=== PATIENT | female | born 1955 | race Caucasian/White ===

== ENCOUNTER 2022-01-08 12:06 | Emergency (ER) | payer BC, SELFPAY ==
[2022-01-08 12:16] VITALS: BP 100/82; PULSE 106; RESP 18; TEMP 38.9; O2SAT 94
--- NOTE | 2022-01-08 12:38 | ED.GENADUL_ITS ---
Discharge Plan Disposition Patient Disposition: Home Condition: Good Discharge Details Clinical Impression: Pneumonia, Asthma exacerbation Primary Care Provider: Ricky Polo ED Provider: Victoriano Rosado Home Meds and New Rx's Prescriptions: New prednisone 50 mg tablet 50 mg PO DAILY Qty: 5 0RF doxycycline hyclate 100 mg tablet 100 mg PO BID Qty: 20 0RF Discharge Instructions Instructions: Asthma (ED), Pneumonia (ED) Additional Instructions: At this time you have evidence of mild pneumonia on the right-hand side. This likely started from a viral illness and has now progressed into pneumonia. Please take the antibiotic doxycycline as prescribed as well as a steroid to help with your asthma exacerbation. Please continue to take your inhaler, 2 puffs every 4-6 hours for the next week to help with your asthma exacerbation. If you notice any worsening of your symptoms, or any new symptoms such as vomiting, diarrhea, fever, chills, shortness of breath, chest pain, numbness, weakness, or fainting , please return immediately to the emergency department for reevaluation. Please follow up with your primary care provider as soon as possible for reassessment and reevaluation. As always, it was a pleasure participating in your medical care today. Referrals: Ricky Polo [Primary Care Provider] - Discharge Data Discharge Date/Time-TO BE ENTERED AT DEPARTURE: 01/08/22 13:04 Medical Decision Making 66-year-old female with no significant past medical history except for asthma, presents today for evaluation of cough, fever, and chills. Patient states that symptoms have been present for the last 5 days. It started with a runny nose and congestion and has transition to cough. She has been exposed to family members that have had RSV recently. She has not gotten her flu shot this year. She has not had a recent COVID booster. She has been using her inhaler at home. She has taken Tylenol and Motrin as needed for fever. No other complaints at this time. No other modifying factors. Exam demonstrates wheezes throughout her lung louise, crackles on the right. Bedside ultrasound demonstrates B-lines and small amount of consolidation noted on the right as well. Symptoms are concerning for mild pneumonia. Patient is out of the window for treatment for influenza. We will test for COVID and RSV. I do feel that the patient would benefit from antibiotic secondary to the bacterial pneumonia. Will prescribe doxycycline. Blood pressure and vital signs are otherwise stable. No hypoxemia necessitating inpatient admission or supplemental oxygen. Patient will continue to use her inhaler. We will give prednisone for home use. We will give a bottle of doxycycline here and a prescription to her pharmacy and the first dose of prednisone here and a prescription to her pharmacy. Discussed red flags which to return. I have extensively reviewed the treatment plan and discharge instructions with the patient and their family. I have addressed all patient concerns at this time. The patient and family was made aware of what symptoms to monitor for that would warrant a return to the emergency department. Discussed the plan with the patient and family, they demonstrate verbal understanding and agreement with our assessment and plan at this time. The documentation in this chart was dictated using [employer] dictation software. Please excuse any dictation errors. Patient's flu and COVID are negative, RSV was positive. I did call the patient and informed her of this. Sign Out No HPI General Date/Time Provider Initiated Documentation: 01/08/22 12:19 . HPI Narrative: 66-year-old female with no significant past medical history except for asthma, presents today for evaluation of cough, fever, and chills. Patient states that symptoms have been present for the last 5 days. It started with a runny nose and congestion and has transition to cough. She has been exposed to family members that have had RSV recently. She has not gotten her flu shot this year. She has not had a recent COVID booster. She has been using her inhaler at home. She has taken Tylenol and Motrin as needed for fever. No other complaints at this time. No other modifying factors. Related Data Home Medications Medication Instructions Recorded Confirmed doxycycline hyclate 100 mg tablet 100 mg PO BID #20 tabs 01/08/22 prednisone 50 mg tablet 50 mg PO DAILY #5 tabs 01/08/22 Previous Rx's Medication Instructions Recorded doxycycline hyclate 100 mg tablet 100 mg PO BID #20 tabs 01/08/22 prednisone 50 mg tablet 50 mg PO DAILY #5 tabs 01/08/22 General Stated Complaint: RespSymp CARIDAD: 4 Review of Systems All systems reviewed & are unremarkable except as noted in HPI and below PFSH All Active Problems Pneumonia (Acute) Asthma exacerbation (Acute) Social History Smoking/Tobacco Use Status: Never Smoking risk assessment performed?: Yes Alcohol Intake: never Drug use: Never Substance use type: does not use Do you feel safe at home: Yes Do you feel safe in your relationship?: Yes Exam Narrative Exam Narrative: 1.Const: Well-nourished, Well-developed, appearing stated age 2.Eyes: PERRL, no conjunctival injection, and symmetrical lids. 3.ENT: Atraumatic external nose and ears. Moist MM. Neck: Symmetric, trachea midline, No thyromegaly. 4.CVS: +S1/S2, No murmurs or gallops. Peripheral pulses 2+ and equal in all extremities. Brisk capillary refill in all extremities. 5.RESP: Crackles are noted in the right lung field, wheezes noted throughout. No rhonchi. 6.GI: Soft, Nontender/Nondistended, No hepatosplenomegaly. No guarding or rebound. 7.MSK: Normocephalic/Atraumatic, Extremities w/o deformity or ttp No cyanosis or clubbing, Normal movement of all extremities 8.Skin: Warm, Dry. No rashes or lesions. 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 Sensation grossly intact, no focal neurologic deficits. 10.Psych: (AAO) x3. Appropriate mood and affect Course Vital Signs Vital signs: Vital Signs Temperature 38.9 C H 01/08/22 12:16 Pulse 106 H 01/08/22 12:16 Respiratory Rate 18 01/08/22 12:16 Blood Pressure 100/82 01/08/22 12:16 Pulse Oximetry 94 01/08/22 12:16 Temperature 38.9 C H 01/08/22 12:16 Temperature Source Tympanic 01/08/22 12:16 Pulse 106 H 01/08/22 12:16 Respiratory Rate 18 01/08/22 12:16 Respiratory Effort 01/08/22 12:19 Blood Pressure 100/82 01/08/22 12:16 Blood Pressure Position Supine 01/08/22 12:16 Pulse Oximetry 94 01/08/22 12:16 Oxygen Delivery Method Room Air 01/08/22 12:16 Oxygen Flow Rate 0 01/08/22 12:16 Pain Level 0 01/08/22 12:16 POCUS Exam (ED) Limited Thoracic Lung Exam DATE OF EXAM: 01/08/22 TIME OF EXAM: 13:58 PROVIDER THAT PERFORMED THE STUDY: Victoriano Rosado IS THIS A REPEAT EXAM DURING THIS ENCOUNTER: No REASON FOR EXAM: Pneumonia VISUALIZED STRUCTURES: right lateral, left lateral, right posterior and left posterior PERTINENT FINDINGS/IMPRESSION: B-lines/right side and Pneumonia; no B-Lines/left side Exam complete
[2022-01-08] MEDS: predniSONE 20 MG TAB 60 MG PO (12:56)
[2022-01-08] MEDS: Doxycycline Hyclate 100 MG, 2 CAPS/BTL PO (12:56)
[2022-01-08 12:57] VITALS: BP 110/78; PULSE 98; RESP 14; O2SAT 94
[2022-01-08 13:32] LABS: COVID-19 PCR Negative (Negative); Influenza A PCR Negative (Negative); Influenza B PCR Negative (Negative)
[2022-01-08 14:00] LABS: RSV PCR Positive (Negative)
== END 2022-01-08 13:04 | disposition home or self-care (01) ==
PROVIDERS: Emergency Provider Student in an Organized Health Care Education/Training Program; PCP Physician Assistant Medical
DX: J18.9 Pneumonia, unspecified organism (principal); J45.901 Unspecified asthma with (acute) exacerbation; B97.4 Respiratory syncytial virus as the cause of diseases classified elsewhere
CPT/HCPCS: 76604; 87637; 99284; 99283; J7512